=== PATIENT | female | born 1945 | race Caucasian/White ===

== ENCOUNTER 2016-03-07 11:00 | Outpatient (RCR) | payer MEDICARE, BC ==
[~2016-03-07 11:00] MED LIST: COLACE 100100 MG/CAP PO; COMBIGAN 0.2%-010 ML OS; COZAAR50 MG PO; FERROUS SU325 MG/TAB PO; HUMALOG100 U/ML SC; HUMULIN R 10100 U/ML SC; NORCO 325 MG-7.1 TAB PO; NOVOLIN N100 U/ML SC; NOVOLIN R100 U/ML SQ; PRILOSEC 20MG20 MG PO; SENNA8.6 MG PO; TYLENOL 325MG325 MG PO; XALATAN EYE DROPS OD; [UNRECOGNIZED DRUG - OTHER] SQ; [UNRECOGNIZED DRUG - OTHER] SQ
== END 2016-04-03 | disposition home or self-care (01) ==
LOC: MKS.ESL.PT
DX: M48.06 Spinal stenosis, lumbar region (principal); Z87.81 Personal history of (healed) traumatic fracture
CPT/HCPCS: G8978-GP; G8979-GP; G8980-GP

== ENCOUNTER → 2016-05-10 | Outpatient (CLI) | payer MEDICARE, BC ==
[~2016-05-10] MED LIST changes: +COMBIGAN 0.2%-0.5 ML OS; +HUMULIN N 10100 U/ML SQ; +LOPRESSOR 225 MG/TAB PO
== END ==
LOC: SUN.DIA 09:25
DX: E11.40 Type 2 diabetes mellitus with diabetic neuropathy, unspecified (principal); E11.21 Type 2 diabetes mellitus with diabetic nephropathy; E11.65 Type 2 diabetes mellitus with hyperglycemia; Z79.4 Long term (current) use of insulin; Z68.27 Body mass index [BMI] 27.0-27.9, adult; Z71.3 Dietary counseling and surveillance

== ENCOUNTER 2016-08-16 08:44 | Day surgery (SDC) | payer MEDICARE, BC ==
[~2016-08-16] VITALS: Ht 157.5 cm; Wt 68.1 kg
[2016-08-16] VITALS (14 sets, daily range): BP systolic 118–168; BP diastolic 58–85; PULSE 76–85; TEMP 97.7–98.1
[~2016-08-16 08:44] MED LIST changes: -COMBIGAN 0.2%-0.5 ML OS; -HUMULIN N 10100 U/ML SQ; -LOPRESSOR 225 MG/TAB PO
[2016-08-16] MEDS ORDERED: LOPRESSOR 225 MG/TAB PO (09:30)
[2016-08-16] MEDS ORDERED: HUMULIN N 10100 U/ML SQ (09:36)
[2016-08-16] MEDS ORDERED: COMBIGAN 0.2%-0.5 ML OS (09:37)
[2016-08-16 09:39] LABS: HEMATOCRIT 38.2 % (37.0-47.0); HEMOGLOBIN 12.2 g/dl (12.5-16.0); MEAN CELL VOLUME 94 fl (80.0-100.0); MEAN CORPUSCULAR HEMOGLOBIN 30 pg (27.0-31.0); MEAN CORPUSCULAR HGB CONC 32 g/dl (33.0-37.0); MEAN PLATELET VOLUME 11.3 fl (7.4-10.4); PLATELET COUNT 184 K/mm3 (130-400); RED BLOOD COUNT 4.06 M/mm3 (4.10-5.30); REDCELL DISTRIBUTION WIDTH-CV 15.2 % (11.5-14.5); WHITE BLOOD COUNT 4.7 K/mm3 (4.8-10.8)
[2016-08-16 09:45] LABS: INR 1.1 (0.8-3.0)
[2016-08-16] MEDS ORDERED: FERROUS SU325 MG/TAB PO (09:52)
[2016-08-16 11:07] LABS: CALCIUM 8.9 mg/dL (8.4-10.2); CREATININE, serum 1.27 mg/dL (0.52-1.25); POTASSIUM 4.1 mmol/L (3.4-5.0)
[2016-08-17 01:09] VITALS: BP 93/41; PULSE 100; TEMP 97.5
[2016-08-17 04:10] VITALS: BP 108/53; PULSE 80; TEMP 97.6
[2016-08-17 07:30] LABS: BASO # 0.1 (0.0-0.2); BASO % 1.9 % (0.0-2.0); EOS # 0.4 (0.0-0.7); EOS % 10.7 % (0-4.0); GRAN % 48.9 % (42.2-75.2); HEMATOCRIT 37.3 % (37.0-47.0); LYMPH # 1.1 (1.2-3.4); LYMPH % 25.7 % (20.0-51.0); MEAN CELL VOLUME 95 fl (80.0-100.0); MEAN CORPUSCULAR HEMOGLOBIN 30 pg (27.0-31.0); MEAN CORPUSCULAR HGB CONC 31 g/dl (33.0-37.0); MEAN PLATELET VOLUME 11.3 fl (7.4-10.4); MONO # 0.5 (0.1-0.6); MONO % 12.6 % (1.7-9.3); PLATELET COUNT 173 K/mm3 (130-400); RED BLOOD COUNT 3.91 M/mm3 (4.10-5.30); REDCELL DISTRIBUTION WIDTH-CV 15.1 % (11.5-14.5); WHITE BLOOD COUNT 4.1 K/mm3 (4.8-10.8)
[2016-08-17 07:37] LABS: HEMOGLOBIN 11.7 g/dl (12.5-16.0)
[2016-08-17 07:43] LABS: CALCIUM 8.6 mg/dL (8.4-10.2); CREATININE, serum 1.44 mg/dL (0.52-1.25); POTASSIUM 4.3 mmol/L (3.4-5.0)
[2016-08-17 07:46] VITALS: BP 119/60; PULSE 78; TEMP 98.7
[2016-08-17 08:56] VITALS: BP 119/60; PULSE 78; TEMP 98.7
== END 2016-08-17 10:33 | disposition short-term general hospital (02) ==
LOC: COL.CAR 08:44 → MEDICAL 18:20 → COL.CAR 08-17 10:33
PROVIDERS: Internal Medicine Cardiovascular Disease
DX: I25.110 Atherosclerotic heart disease of native coronary artery with unstable angina pectoris (principal); I25.5 Ischemic cardiomyopathy; I34.0 Nonrheumatic mitral (valve) insufficiency; I50.1 Left ventricular failure, unspecified; E11.9 Type 2 diabetes mellitus without complications; Z68.26 Body mass index [BMI] 26.0-26.9, adult; Z79.4 Long term (current) use of insulin; K21.9 Gastro-esophageal reflux disease without esophagitis
CPT/HCPCS: OP; C1769; G0378; G0379; J1644; J1815; J1940; J2250; J2405; J3010; Q9967

== ENCOUNTER → 2016-12-26 | Outpatient (CLI) | payer MEDICARE, BC ==
[~2016-12-26] MED LIST changes: +COMBIGAN 0.2%-0.5 ML OS; +HUMULIN N 10100 U/ML SQ; +LOPRESSOR 225 MG/TAB PO
== END ==
LOC: MC.RAD 09:26
DX: Z12.31 Encounter for screening mammogram for malignant neoplasm of breast (principal)

== ENCOUNTER 2016-12-28 13:46 | Outpatient (RCR) | payer MEDICARE, BC | END 2016-12-29 | disposition still patient (30) | LOC: COL.CR | DX: Z48.812 Encounter for surgical aftercare following surgery on the circulatory system (principal); Z95.5 Presence of coronary angioplasty implant and graft; I25.10 Atherosclerotic heart disease of native coronary artery without angina pectoris ==

== ENCOUNTER 2017-01-06 12:45 | Outpatient (RCR) | payer MEDICARE, BC | END 2017-01-23 14:59 | disposition home or self-care (01) | LOC: COL.CR 12:45 | DX: Z48.812 Encounter for surgical aftercare following surgery on the circulatory system (principal); Z95.5 Presence of coronary angioplasty implant and graft; I25.5 Ischemic cardiomyopathy; I50.23 Acute on chronic systolic (congestive) heart failure ==

== ENCOUNTER → 2018-01-09 | Outpatient (CLI) | payer MEDICARE, BC | LOC: MC.RAD 09:11 | DX: Z12.31 Encounter for screening mammogram for malignant neoplasm of breast (principal) ==

== ENCOUNTER 2018-05-17 12:51 | Emergency (ER) | payer MEDICARE, BC ==
[~2018-05-17] VITALS: Ht 154.9 cm; Wt 63.6 kg
[2018-05-17 12:55] VITALS: TEMP 97.5
[2018-05-17] MEDS ORDERED: PLAVIX 75MG TAB75 MG (13:13)
[2018-05-17] MEDS ORDERED: NORCO 325 MG-51 TAB PO (15:56)
[2018-05-17] MEDS ORDERED: ZOFRAN 4MG T4 MG/TAB PO (15:56)
[2018-05-17 17:10] VITALS: BP 132/84; PULSE 61
== END 2018-05-17 17:20 | disposition home or self-care (01) ==
LOC: COL.ER 12:51
DX: S52.131A Displaced fracture of neck of right radius, initial encounter for closed fracture (principal); E11.9 Type 2 diabetes mellitus without complications; I25.10 Atherosclerotic heart disease of native coronary artery without angina pectoris; Z79.4 Long term (current) use of insulin; Z79.02 Long term (current) use of antithrombotics/antiplatelets; W01.0XXA Fall on same level from slipping, tripping and stumbling without subsequent striking against object, initial encounter
CPT/HCPCS: J2060; J2405; J2765; J3010; J7030; Q4050